=== PATIENT | female | born 2000 | race Caucasian/White ===

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

== ENCOUNTER 2022-06-11 10:41 | Outpatient (CLI) | payer OTHER, SELFPAY ==
--- NOTE | 2022-06-11 09:00 | DI.RAD_ITS ---
Exam(s) XR HIP RT AP LAT ONLY EXAM: XR HIP RT AP LAT ONLY CLINICAL HISTORY: eval R hip pain. TECHNIQUE: 2D digital imaging was performed of the right hip. Two images were obtained. AP and late ral hip views were obtained. COMPARISON: No exams were available for comparison FINDINGS: BONES: No acute fracture is present. No bony destructive lesion is seen. JOINTS: No dislocation present. SOFT TISSUE: There is an IUD in the pelvis. IMPRESSION: Unremarkable radiographs of the right hip. DATA REPOSITORY: RADIATION DOSE DELIVERED:
== END 2022-06-11 10:42 | disposition home or self-care (01) ==
LOC: DIORS 10:42
PROVIDERS: PCP Nurse Practitioner Family; Referring Provider Nurse Practitioner Family; Visit Provider Student in an Organized Health Care Education/Training Program
DX: M25.551 Pain in right hip (principal)
CPT/HCPCS: 73502